=== PATIENT | male | born 1980 | race Caucasian/White ===

== ENCOUNTER 2017-04-21 13:27 | Emergency (ER) | payer BC ==
[~2017-04-21 13:27] MED LIST: AZILSARTAN PO; CLARITIN10 MG PO; IBU800 M1 PO; LEVOFLOXACIN500 MG PO; LIDEX0.05% T; LIPITOR20 MG PO; LIPITOR40 MG PO; MEDROL DOSEPAK4 MG PO; NAPROSYN500 MG PO; NORCO 325 MG-51 TAB PO; PARAFON FORTE500 MG PO; PHENERGAN W/DM120 ML PO; PREDNICOT20 MG PO; VIBRAMYCIN100 MG PO; VICODIN 5/500 505 MG PO; [UNRECOGNIZED DRUG - OTHER] PO; [UNRECOGNIZED DRUG - REMARK]
[2017-04-21] MEDS ORDERED: NAPROSYN500 MG PO (14:07)
[2017-04-21] MEDS ORDERED: HYDROCODONE BIT1 T11 PO (14:07)
[2017-04-21 14:19] LABS: BASO # 0.1 10*3/uL (0.0-0.1); BASO % 0.5 % (0.0-1.0); EOS # 0.2 10*3/uL (0.0-0.4); EOS % 1.2 % (1.0-4.0); HEMATOCRIT 44.9 % (42.0-52.0); IG # 0.1 10*3/uL (0.0-0.1); LYMPH # 1.6 10*3/uL (1.3-4.4); MEAN CELL VOLUME 81.8 fl (80.0-94.0); MEAN CORPUSCULAR HGB 27.3 pg (27.0-31.0); MEAN CORPUSCULAR HGB CONC 33.4 g/dl (33.0-37.0); MEAN PLATELET VOLUME 8.7 fl (9.6-12.3); MONO # 0.6 10*3/uL (0.1-1.0); MONO % 4.5 % (3.0-9.0); NEUT # 10.2 10*3/uL (2.3-7.9); NEUT % 80.4 % (47.0-73.0); PLATELET COUNT AUTOMATED 447 10*3/uL (130-400); RED BLOOD COUNT 5.49 10*6/uL (4.50-5.90); RED CELL DISTRI WIDTH 13.2 % (0-14.5); WHITE BLOOD COUNT 12.7 10*3/uL (4.8-10.8)
[2017-04-21 14:27] LABS: INTERNATIONAL NORM RATIO 0.9 (2.0-3.5); PROTHROMBIN TIME 9.8 SECONDS (9.0-12.4)
[2017-04-21 14:34] LABS: BILIRUBIN, TOTAL 0.7 mg/dl (0.2-1.0); POTASSIUM 4.8 mmol/L (3.5-5.1); TOTAL PROTEIN 7.7 gm/dL (6.4-8.2)
== END 2017-04-21 14:34 | disposition home or self-care (01) ==
LOC: ED 13:27
PROVIDERS: Nurse Practitioner Family
DX: S86.012A Strain of left Achilles tendon, initial encounter (principal); R03.0 Elevated blood-pressure reading, without diagnosis of hypertension; Z88.0 Allergy status to penicillin; Z79.899 Other long term (current) drug therapy; X58.XXXA Exposure to other specified factors, initial encounter; Y93.64 Activity, baseball; Y92.89 Other specified places as the place of occurrence of the external cause; Y99.8 Other external cause status

== ENCOUNTER 2017-12-08 13:21 | Emergency (ER) | payer BC ==
[~2017-12-08] VITALS: Wt 99.8 kg
[~2017-12-08 13:21] MED LIST changes: +HYDROCODONE BIT1 T11 PO
[2017-12-08] MEDS ORDERED: EDARBI80 M1 PO (13:26)
[2017-12-08] MEDS ORDERED: ATORVASTATIN CA40 M1 PO (13:27)
[2017-12-08] MEDS ORDERED: VENTOLIN 02.5 MG/3 M INH (15:32)
== END 2017-12-08 15:36 | disposition home or self-care (01) ==
LOC: ED 13:21
DX: J10.1 Influenza due to other identified influenza virus with other respiratory manifestations (principal); Z79.899 Other long term (current) drug therapy; Z88.0 Allergy status to penicillin

== ENCOUNTER 2018-01-06 20:19 | Emergency (ER) | payer BC ==
[~2018-01-06] VITALS: Ht 180.3 cm; Wt 105.7 kg
[~2018-01-06 20:19] MED LIST changes: +ATORVASTATIN CA40 M1 PO; +EDARBI80 M1 PO; +VENTOLIN 02.5 MG/3 M INH
[2018-01-06 20:41] LABS: BILIRUBIN NEGATIVE (NEGATIVE); BLOOD 2+ (NEGATIVE); CLARITY CLEAR (CLEAR); COLOR YELLOW (YELLOW); GLUCOSE NEGATIVE (NEGATIVE); KETONE NEGATIVE (NEGATIVE); LEUKO ESTERASE NEGATIVE (NEGATIVE); NITRITE NEGATIVE (NEGATIVE); PH 5.5 (5.0-9.0); UROBILINOGEN 0.2 E.U./dl (0.2-1.0)
[2018-01-06 20:55] LABS: BACTERIA TRACE; WBC 0-2 wbc/hpf (0-5)
[2018-01-06 21:11] LABS: BASO # 0.1 10*3/uL (0.0-0.1); BASO % 0.4 % (0.0-1.0); EOS # 0.1 10*3/uL (0.0-0.4); EOS % 0.5 % (1.0-4.0); HEMATOCRIT 45.8 % (42.0-52.0); HEMOGLOBIN 15.4 g/dl (14.0-18.0); LYMPH % 24.3 % (27.0-41.0); MEAN CELL VOLUME 81.3 fl (80.0-94.0); MEAN CORPUSCULAR HGB 27.4 pg (27.0-31.0); MEAN CORPUSCULAR HGB CONC 33.6 g/dl (33.0-37.0); MEAN PLATELET VOLUME 8.9 fl (9.6-12.3); MONO # 0.6 10*3/uL (0.1-1.0); MONO % 5.1 % (3.0-9.0); NEUT # 8.4 10*3/uL (2.3-7.9); NEUT % 69.3 % (47.0-73.0); PLATELET COUNT AUTOMATED 412 10*3/uL (130-400); RED BLOOD COUNT 5.63 10*6/uL (4.50-5.90); WHITE BLOOD COUNT 12.1 10*3/uL (4.8-10.8)
[2018-01-06 21:27] LABS: ALBUMIN 4.2 gm/dl (3.1-4.5); BUN 12 mg/dl (7-24); CHLORIDE 99 mmol/L (98-107); POTASSIUM 4.7 mmol/L (3.5-5.1); SGOT/AST 26 IU/L (3-35); SGPT/ALT 49 U/L (12-78); SODIUM 136 mmol/L (136-145); TOTAL PROTEIN 7.8 gm/dL (6.4-8.2)
[2018-01-06 21:29] LABS: ALKALINE PHOSPHATASE 78 U/L (45-117)
[2018-01-06] MEDS ORDERED: Motrin,Rufen800 MG PO (22:24)
[2018-01-06] MEDS ORDERED: FLOMAX0.4 MG PO (22:24)
[2018-01-06] MEDS ORDERED: NORCO 5-325 TA1 EACH PO (22:25)
== END 2018-01-06 22:11 | disposition home or self-care (01) ==
LOC: ED 20:19
PROVIDERS: Physician Assistant; Student in an Organized Health Care Education/Training Program
DX: N20.0 Calculus of kidney (principal); Z88.0 Allergy status to penicillin; Z79.899 Other long term (current) drug therapy

== ENCOUNTER 2018-01-08 20:18 | Emergency (ER) | payer BC ==
[~2018-01-08] VITALS: Ht 165.1 cm; Wt 104.3 kg
[~2018-01-08 20:18] MED LIST changes: +FLOMAX0.4 MG PO; +Motrin,Rufen800 MG PO; +NORCO 5-325 TA1 EACH PO
[2018-01-08 20:46] LABS: BILIRUBIN NEGATIVE (NEGATIVE); BLOOD 2+ (NEGATIVE); CLARITY CLEAR (CLEAR); COLOR YELLOW (YELLOW); GLUCOSE NEGATIVE (NEGATIVE); KETONE TRACE (NEGATIVE); LEUKO ESTERASE NEGATIVE (NEGATIVE); NITRITE NEGATIVE (NEGATIVE)
[2018-01-08 21:07] LABS: BACTERIA TRACE; EPITHELIAL CELLS 0-2; MUCOUS TRACE; WBC 0-2 wbc/hpf (0-5)
== END 2018-01-08 21:53 | disposition home or self-care (01) ==
LOC: ED 20:18
PROVIDERS: Emergency Medicine Emergency Medical Services
DX: N20.1 Calculus of ureter (principal); N23 Unspecified renal colic; Z88.0 Allergy status to penicillin

== ENCOUNTER 2019-04-12 16:37 | Emergency (ER) | payer BC ==
[~2019-04-12] VITALS: Ht 182.8 cm; Wt 99.8 kg
[~2019-04-12 16:37] MED LIST changes: +ROBAXIN500 M1 PO
[2019-04-12] MEDS ORDERED: ROBAXIN500 M1 PO (18:24)
[2019-04-12] MEDS ORDERED: PREDNISONE20 M1 PO (18:24)
== END 2019-04-12 18:29 | disposition home or self-care (01) ==
LOC: ED 16:37
DX: M54.42 Lumbago with sciatica, left side (principal); M62.830 Muscle spasm of back; Z88.0 Allergy status to penicillin; Z79.899 Other long term (current) drug therapy

== ENCOUNTER 2019-05-24 15:24 | Emergency (ER) | payer BC ==
[~2019-05-24] VITALS: Ht 180.3 cm; Wt 99.8 kg
[~2019-05-24 15:24] MED LIST changes: +PREDNISONE20 M1 PO
[2019-05-24] MEDS ORDERED: DOXYCYCLINE100 M3 PO (15:47)
[2019-05-24] MEDS ORDERED: PREDNISONE20 M1 PO (15:47)
== END 2019-05-24 17:25 | disposition home or self-care (01) ==
LOC: ED 15:24
DX: S60.561A Insect bite (nonvenomous) of right hand, initial encounter (principal); L08.9 Local infection of the skin and subcutaneous tissue, unspecified; L90.5 Scar conditions and fibrosis of skin; Z88.0 Allergy status to penicillin; W57.XXXA Bitten or stung by nonvenomous insect and other nonvenomous arthropods, initial encounter; Y93.89 Activity, other specified; Y92.89 Other specified places as the place of occurrence of the external cause; Y99.8 Other external cause status

== ENCOUNTER → 2021-08-04 | Outpatient (CLI) | payer BC ==
[~2021-08-04] MED LIST changes: +DOXYCYCLINE100 M3 PO
== END | disposition home or self-care (01) ==
LOC: RAD 10:49
PROVIDERS: ATTEND Nurse Practitioner Family
DX: M48.02 Spinal stenosis, cervical region (principal)

== ENCOUNTER → 2024-12-16 | Outpatient (CLI) | payer BC | END | disposition home or self-care (01) | LOC: LAB 11:20 | PROVIDERS: ATTEND Family Medicine | DX: E11.9 Type 2 diabetes mellitus without complications (principal) ==